=== PATIENT | male | born 1970 | race Caucasian/White ===

== ENCOUNTER 2024-03-13 08:15 | Outpatient (CLI) | payer BC, SELFPAY ==
--- NOTE | ~2024-03-13 | CT_ITS ---
Non-contrast CT scan of the Abdomen and Pelvis Clinical indication: Ventral hernia Technique: 2.5 mm axial scans were obtained through the abdomen and pelvis without intravenous or or al contrast. Dose reduction technique was used on this scan by utilizing automated exposure control a nd iterative reconstruction technique. The dose-length product (DLP) was 1164.37 mGy-cm. Findings: Images through the lung bases reveal no abnormalities. Small bilateral nonobstructing renal calculi measure up to 203 mm. Left renal cyst present. No ureter al stone or hydronephrosis on either side. The liver, spleen, pancreas, gallbladder, and adrenals appear normal. There is no aortic aneurysm. There is no evidence of bowel obstruction. There is a large fat-containing umbilical hernia. Images through the pelvis were performed. There is no evidence of ascites or lymphadenopathy. Urinary bladder unremarkable. Prostate gland minimally enlarged. There is extensive degenerative spondylosis of the spine. Impression: Large fat-containing umbilical hernia. Bilateral small nonobstructing renal stones. Reviewed, dictated and finalized at [facility]. [employer]ED [employer]IM[employer]ST Impression: Large fat-containing umbilical hernia. Bilateral small nonobstructing renal stones.
== END 2024-03-13 08:16 | disposition home or self-care (01) ==
LOC: GOSHIMG 08:15
PROVIDERS: PCP Family Medicine; Visit Provider Surgery
DX: K43.6 Other and unspecified ventral hernia with obstruction, without gangrene (principal); K42.9 Umbilical hernia without obstruction or gangrene; N20.0 Calculus of kidney
CPT/HCPCS: 74176

== ENCOUNTER 2024-12-16 06:43 | Outpatient (CLI) | payer BC, SELFPAY ==
--- NOTE | ~2024-12-16 | CT_ITS ---
EXAMINATION: CT abdomen pelvis wo con DATE: 12/16/2024 07:24 INDICATION: Ventral hernia. TECHNIQUE: Computed tomography (CT) of the abdomen and pelvis was performed without intravenous contrast. Automated exposure control and iterative reconstruction technique were employed. The dose-length product was 1180.78 mGy-cm. COMPARISON: CT abdomen and pelvis 03/13/2024 FINDINGS: The visualized portions of the lung bases are clear without pneumonia or pleural effusion. The heart size is normal. No pericardial effusion. The liver, gallbladder, spleen, pancreas, and adrenal glands are normal. There are 6 stones in right kidney measuring up to 3 mm. There is a 6.1 cm cyst in left kidney. There are 4 stones in left kidney measuring up to 2 mm. The prostate is mildly enlarged. There are no dilated loops of bowel. The appendix is normal. There is an umbilical hernia containing fat. 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 There are no pathologically enlarged lymph nodes. There is no ascites. There is severe lumbar spondylosis. There is mild chronic anterior wedging of multiple vertebral bodies. IMPRESSION: 1. Stable umbilical hernia containing fat. Reviewed, dictated and finalized at location E.
== END 2024-12-16 06:44 | disposition home or self-care (01) ==
PROVIDERS: PCP Family Medicine; Visit Provider Surgery
DX: K43.6 Other and unspecified ventral hernia with obstruction, without gangrene (principal); K42.9 Umbilical hernia without obstruction or gangrene
CPT/HCPCS: 74176

== ENCOUNTER 2025-01-06 10:14 | Outpatient (CLI) | payer BC, SELFPAY ==
--- OUTSIDE RECORDS SUMMARY | 2025-01-06 11:00 | XMS_ITS | Clinical Summary ---
Author Organization [facility] Address [address] [place] [address] Care Team Providers Care Bow Maker Production Name Role Phone Rowdy Ramires MD Primary Care Provider [phone] Landon Warren MD Unavailable [phone] Allergies No known active allergies Medications multivit qktlyksi-ttxw-V A-calcium (THERA-M) 9 mg iron-400 mcg tabletIndicatio ns:Vitamin Deficiency Prevention Take 1 tablet by mouth daily Active coenzyme Q10 10 mg capsule Take 1 capsule by mouth daily Active ascorbic acid (ascorbic acid with juan hips) 500 mg tablet,chewable Take 1 tablet/chew tab (500 mg total) by mouth daily Active cholecalciferol (VITAMIN D-3) 2000 unit tablet Take 1 tablet (2,000 Units total) by mouth daily Active vitamin E 400 unit capsule Take 1 capsule (400 Units total) by mouth daily Active nitroglycerin (NITROSTAT) 0.4 mg SL tabletIndicatio ns:acute episode of anginal pain Place 1 tablet (0.4 mg total) under the tongue every 5 (five) minutes as needed for chest pain 90 tablet 07/18/19 24 Active aspirin 81 mg enteric coated tablet Take 1 tablet (81 mg total) by mouth daily 90 tablet 3 10/16/19 24 Active spironolactone (ALDACTONE) 25 mg tablet TAKE 1 TABLET(25 MG) BY MOUTH DAILY 90 tablet 3 12/17/19 24 Active isosorbide mononitrate ER (IMDUR) 60 mg 24 hr tablet TAKE 1 TABLET(60 MG) BY MOUTH DAILY 30 tablet 3 02/11/20 24 Active Pregnyl 10,000 unit injection DILUTE WITH 5ML SOLVENT INCLUDED IN BOX AND INJECT 25 UNITS SUB-Q TWICE WEEKLY 03/24/20 24 Active Wegovy 2.4 mg/0.75 mL auto-injector 05/08/19 25 Active testosterone cypionate (DEPO-TESTOTERO NE) 100 mg/mL injection Inject into the muscle as instructed once a week Pt unsure of dosage Active rosuvastatin (CRESTOR) 40 mg tablet Take 1 tablet (40 mg total) by mouth nightly 30 tablet 11 06/03/19 25 Active dapagliflozin propanediol (Farxiga) 10 mg tablet TAKE 1 TABLET(10 MG) BY MOUTH DAILY 90 tablet 3 08/12/19 25 Active furosemide (LASIX) 40 mg tablet TAKE 1 TABLET(40 MG) BY MOUTH DAILY 90 tablet 3 01/03/20 25 Active lisinopriL (PRINIVIL,ZESTR IL) 20 mg tablet TAKE 1 TABLET(20 MG) BY MOUTH DAILY 90 tablet 3 01/03/20 25 Active clopidogreL (PLAVIX) 75 mg tablet TAKE 1 TABLET(75 MG) BY MOUTH DAILY 90 tablet 3 01/03/20 25 Active carvediloL (COREG) 25 mg tablet TAKE 1 TABLET(25 MG) BY MOUTH TWICE DAILY WITH MEALS 180 tablet 3 01/03/20 25 Active lisinopriL (PRINIVIL,ZESTR IL) 20 mg tablet TAKE 1 TABLET(20 MG) BY MOUTH DAILY 90 tablet 3 12/17/19 24 025 Discontinued furosemide (LASIX) 40 mg tablet TAKE 1 TABLET(40 MG) BY MOUTH DAILY 90 tablet 3 12/17/19 24 025 Discontinued clopidogreL (PLAVIX) 75 mg tablet TAKE 1 TABLET(75 MG) BY MOUTH DAILY 90 tablet 3 12/17/19 24 025 Discontinued carvediloL (COREG) 25 mg tablet TAKE 1 TABLET(25 MG) BY MOUTH TWICE DAILY WITH MEALS 180 tablet 12/17/19 24 025 Discontinued Active Problems Problem Noted Date Diagnosed Date Preop cardiovascular exam 11/02/2023 Assessment & Plan (11/02/2023 10:38 AM CDT): He should be OK for umbilical hernia repair but will review after data available. CAD in [place] artery 07/31/2023 Assessment & Plan (06/03/2024 5:10 PM SPOT CLEANER): Doing well without angina. The patient is aware of the need for Primary prevention through aggressive CV risk factor modifications to include: blood pressure control, LDL control, daily exercise (per guidelines), and achieving and maintaining ideal body weight, etc. We reviewed his angiogram together, demonstrating the diffuse moderate disease as well as an occluded ramus any effect on the anterolateral wall. Fortunately, his LV function has since normalized. EKG-SR 82, normal. Assessment & Plan (11/02/2023 10:36 AM CDT): Doing well without angina. The patient is aware of the need for Secondary prevention through aggressive CV risk factor modifications to include: blood pressure control, LDL control, daily exercise (per guidelines), and achieving and maintaining ideal body weight, etc. Assessment & Plan (07/31/2023 12:02 PM CDT): He likely had a small ramus branch as his culprit vessel, although his hsTn levels never juan very high. Continuing to treat rest of CAD conservatively. Doing well without angina. The patient is aware of the need for Secondary prevention through aggressive CV risk factor modifications to include: blood pressure control, LDL control, daily exercise (per guidelines), and achieving and maintaining ideal body weight, etc. Cardiomyopathy, ischemic 07/31/2023 Assessment & Plan (06/03/2024 10:43 AM SPOT CLEANER): His LV function is normal, so his LV has recovered. Assessment & Plan (11/02/2023 10:46 AM CDT): Repeat TTE today is pending. OK to withhold Lasix now as he has no edema. He will weigh himself daily and observe for edema. Assessment & Plan (07/31/2023 12:03 PM CDT): He will need FU TTE in 3 mos to decide about ICD. Oferred LifeVest in meantime but may not be necessary and he declines. Essential hypertension 07/31/2023 Assessment & Plan (06/03/2024 10:44 AM SPOT CLEANER): His blood pressure here is always been high and likely reactive. His home blood pressure has been under good control on current medications which will be continued. The patient is aware of the need for continued monitoring. Monitor home BP/Keep diary and bring to OV. Call if average BP >140/90 mmHg. Low sodium diet. Assessment & Plan (11/02/2023 10:37 AM CDT): The blood pressure has been under good control on current medications which will be continued. The patient is aware of the need for continued monitoring. Monitor home BP/Keep diary and bring to OV. Call if average BP >140/90 mmHg. Low sodium diet. Assessment & Plan (07/31/2023 12:03 PM CDT): The blood pressure has been under good control on current medications which will be continued. The patient is aware of the need for continued monitoring. Monitor home BP/Keep diary and bring to OV. Call if average BP >140/90 mmHg. Low sodium diet. Morbid obesity with BMI of 40.0-44.9, adult 07/09 Assessment & Plan (06/03/2024 10:46 AM SPOT CLEANER): He has had excellent weight loss on Wegovy Which he will continue. His BMI has dropped from 41 to 36 but he still has a ways to go. Hopefully, he can have a repeat PSG once he is at ideal body weight. Assessment & Plan (11/02/2023 10:37 AM CDT): Discussed meaningful weight loss thru lifestyle modifications, including dietary changes and weight loss. Advised to decrease caloric intake, eat a low-fat/cholesterol and low-salt diet. Assessment & Plan (07/31/2023 12:03 PM CDT): Discussed meaningful weight loss thru lifestyle modifications, including dietary changes and weight loss. Advised to decrease caloric intake, eat a low-fat/cholesterol and low-salt diet. KAREY on CPAP 07/31/2023 Assessment & Plan (06/02/2024 8:25 PM SPOT CLEANER): He continues to use CPAP. Assessment & Plan (11/02/2023 10:37 AM CDT): He uses CPAP nightly. Assessment & Plan (07/31/2023 12:07 PM CDT): He uses CPAP nightly. Migraine 07/31/2023 Assessment & Plan (06/02/2024 8:24 PM SPOT CLEANER): Per PCP. Assessment & Plan (11/02/2023 10:37 AM CDT): Per PCP. Assessment & Plan (07/31/2023 12:09 PM CDT): Still avoiding NSAID's. He will discuss further migraine management with PCP. Erectile dysfunction 07/31/2023 Assessment & Plan (06/02/2024 8:24 PM SPOT CLEANER): Per PCP. Assessment & Plan (11/02/2023 10:37 AM CDT): Per PCP. Assessment & Plan (07/31/2023 12:11 PM CDT): He can not use Viagra like meds due to use of nitrates. We may be able to DC in the future to allow Viagra use. Hyperlipidemia LDL goal <70 07/31/2023 Assessment & Plan (06/03/2024 10:44 AM SPOT CLEANER): The LDL is borderline well controlled on current pharmacotherapy. We will increase his Crestor to 40 mg daily with repeat FLP/AST in 3 months. Assessment & Plan (11/02/2023 10:38 AM CDT): The LDL is well controlled on current pharmacotherapy which will be continued. Needs recheck today. Assessment & Plan (07/31/2023 12:15 PM CDT): The LDL is well controlled on current pharmacotherapy which will be continued. Will recheck after 3 mos of Crestor. Acute systolic CHF (congestive heart failure) Chest pain 07/15/2023 Uncontrolled hypertension 07/15/2023 Obstructive sleep apnea 07/15/2023 Class 3 obesity 07/15/2023 Hypertensive urgency 07/14/2023 Acute congestive heart failure 07/14/2023 Encounters Date Type Department Care Team Description 01/02/2025 Telephone [facility] Card[facility] [address], [place] [address] Landon Warren MD 12/18/2024 Telephone [facility] Cardiology [address] [place] [address] Landon Warren MD from Last 3 Months Surgical History Surgery Date Site/Laterality Comments NO PAST SURGERIES Medical History Medical History Date Comments Obstructive sleep apnea Complian t to CPAP Family History Medical History Relation Name Comments Heart failure Maternal Grandfather Ovarian cancer Mother Relation Name Status Comments Maternal Grandfather Mother Social History Tobacco Use Types Packs/Day Years Used Date Smoking Tobacco: Never Smokeless Tobacco: Never Tobacco Cessation:Counseling Given: No Personal Safety Answer Date Recorded Have you ever been in or are you currently in a harmful physical or emotional relationship or is someone making you feel afraid or unsafe? Denies 07/15/2023 Sex and Gender Information Value Date Recorded Sex Assigned at Not on file Legal Sex Male 5:34 PM SPOT CLEANER Gender Identity Not on file Sexual Orientation Not on file Obstetrics History Last Filed Vital Signs Vital Sign Reading Time Taken Comments Blood Pressure 138/88 06/03/2024 10:55 AM SPOT CLEANER Pulse 86 06/03/2024 10:05 AM SPOT CLEANER Temperature 37 C (98.6 F) 07/18/2023 11:35 AM CDT Respiratory Rate 18 07/18/2023 11:3 5 AM CDT Oxygen Saturation 96% 06/03/2024 10: 05 AM SPOT CLEANER Inhaled Oxygen Concentration - - Weight 122.6 kg (270 lb 3.2 oz) 025 10:05 AM SPOT CLEANER Height 182.9 cm (6') 06/03/2024 10:05 AM SPOT CLEANER Body Mass Index 36.65 06/03/2024 10:05 AM SPOT CLEANER Plan of Treatment Health Maintenance Due Date Last Done Comments Colon Cancer Screening-Colonoscopy 1972 Depression Screening 1972 Hepatitis C Screening 1972 Prostate Cancer Screening-PSA 1972 Hepatitis B Screening 1990 Regular Well Visit/Exam 18-64 1990 Zoster Vaccine (1 of 2) 2022 DTaP/Tdap/Td Vaccine (2 - Td or Tdap) 03/10/2023 03/10/2013 Influenza Vaccine (#1) 2024 0, 02/01/2018, 02/11/2016, Additional history exists Pneumococcal vaccine <65 Aged Out No longer eligible based on patient's age to complete this topic Medical Devices Implanted Type Area Esol Teacher Device Identifier Shelf Expiration Date Model / Serial / Lot [employer]is Mynxgrip 5fr Balloon Catheter Integrate Sealant Lock Latex Free [id number] - [id number] - [id number] Implanted:Qty: 1 on 07/17/2023 by Landon Warren MD at [facility] [employer] 02/06/2025 [id number] / [id number] / [id number] [place] Advance [place]ives For more information, please contact: [phone] * Full Code (Latest Code Status on File) Date Activated Date Inactivated Comments 07/15/2023 4:46 AM 07/18/2023 6:10 PM Care Teams Bow Maker Production Relationship Specialty Start Date End Date Rowdy Ramires MD [address] [place] [address] PCP - General Family Medicine 07/14/23 Landon Warren MD [address] [facility] [address] [place] [address] Consulting Physician Cardiology 07/18/23
--- OUTSIDE RECORDS SUMMARY | 2025-01-06 11:00 | XMS_ITS | Clinical Summary ---
Author Organization [facility] Address [address] [place] [address] Care Team Providers Care Seeing Eye Dog Teacher Name Role Phone Rowdy Ramires MD Primary Care Provider [phone] Source Comments [facility],non-owned Affiliates and Associated Physician Practices is amultiple site organization consisting of ambulatory clinics and hospital sitesin [place], [place], [place] and [place]. This disclosure is being madepursuant to the Care Everywhere program and may not contain all information available regarding this patient. Last updated 17.[facility] [facility] Allergies No known active allergies Medications * Be aware that medications may not be up to date on this document. Alwaysverify current medications with the patient. influenza quadrivalent vac (FLUARIX QUAD) 0.5 ML injection 0 02/02/2018 Ac tive Multiple Vitamin (MULTI-VITAMIN PO) Active nadolol (CORGARD) 40 MG tablet Take 1 tablet by mouth once daily 90 tablet 3 04/21/2019 Active Active Problems Problem Noted Date Diagnosed Date Essential hypertension 03/11/2018 Nonspecific abnormal electrocardiogram (ECG) 06/2017 Social History Tobacco Use Types Packs/Day Years Used Date Smoking Tobacco: Never Smokeless Tobacco: Never Sex and Gender Information Value Date Recorded Sex Assigned at Not on file Legal Sex Male 8:41 AM BACON SKINNER Gender Identity Not on file Sexual Orientation Not on file Last Filed Vital Signs Vital Sign Reading Time Taken Comments Blood Pressure 140/80 04/21/2019 9:08 AM BACON SKINNER Pulse 77 04/21/2019 9:08 AM BACON SKINNER Temperature 36.3 C (97.4 F) 04/21/2019 9:08 AM BACON SKINNER Respiratory Rate - - Oxygen Saturation 97% 06/11/2017 9:38 AM BACON SKINNER Inhaled Oxygen Concentration - - Weight 159.7 kg (352 lb) 04/21/2019 9:08 AM BACON SKINNER Height 182.9 cm (6') 03/04/2018 10:22 AM BACON SKINNER Body Mass Index 47.74 03/04/2018 10:22 AM BACON SKINNER Plan of Treatment Health Maintenance Due Date Last Done Comments COLOGUARD (AGES 45-75) - COL ON CA SCREENING 1972 COLON MONITORING 1972 COLONOSCOPY - COLON CA SCREENING 1972 CT COLONOGRAPHY - COLON CA SCREENING 1972 Colorectal Cancer Screening 1972 FIT - COLON CA SCREENING 1972 FLEX SIG - COLON CA SCREENING 1972 LIPID TESTING 1972 HIV SCREENING 1987 HEPATITIS C SCREENING 03/24/1990 DTAP/TDAP/TD VACCINES (1 - Tdap) 1991 HEPATITIS B VACCINE (1 of 3 - 19+ 3-dose series) 1991 PNEUMOCOCCAL VACCINE 50+ (1 of 1 - PCV) 2022 ZOSTER VACCINE (1 of 2) 2022 DEPRESSION SCREENING 04/09/2024 COVID-19 VACCINE (1 - 2023-2 5 season) 2024 INFLUENZA VACCINE (#1) 2024 HIB VACCINE Aged Out No longer eligi ble based on patient's age to complete this topic HPV VACCINE Aged Out No longer eligi ble based on patient's age to complete this topic MENINGOCOCCAL (Group B) VACC INE SHARED DECISION-MAKING Aged Out No longer eligibl e based on patient's age to complete this topic MENINGOCOCCAL GROUPS A/C/Y/W VACCINE Aged Out No longer eligible b ased on patient's age to complete this topic Insurance ANTH Care Teams Seeing Eye Dog Teacher Relationship Specialty Start Date End Date Rowdy Ramires MD [address] [place] [address] PCP - General Family Medicine 03/13/17
[2025-01-06 11:07] LABS: Anion Gap 9 mmol/L (4-12); Blood Urea Nitrogen 20 mg/dL (9-20); Calcium 9.0 mg/dL (8.4-10.2); Carbon Dioxide 29 mmol/L (22-30); Chloride 102 mmol/L (98-107); Estimated Glomerular Filt Rate > 60; Glucose 74 mg/dL (65-110); Potassium 4.6 mmol/L (3.4-5.0); Sodium 140 mmol/L (137-145)
== END 2025-01-06 10:15 | disposition home or self-care (01) ==
PROVIDERS: Anesthesiology; PCP Family Medicine; Visit Provider Surgery
DX: Z01.818 Encounter for other preprocedural examination (principal); K43.6 Other and unspecified ventral hernia with obstruction, without gangrene; Z79.899 Other long term (current) drug therapy
CPT/HCPCS: 36415; 80048; 86850; 86900; 86901

== ENCOUNTER 2025-01-09 00:26 | Day surgery (SDC) | payer BC, SELFPAY ==
[2025-01-01 13:05] VITALS: BMI 34.0
--- NOTE | 2025-01-01 13:14 | PC.NURSE ---
[facility] has started construction of its new state of the art ER which will open Spring 2026. With this, we anticipate parking may be a challenge for some our surgical patients and families. Parking spaces are limited but are available for all Surgical, obstetrics, and ER patients sharing this lot. If you arrive and find you are having a hard time finding a parking space, please note that we understand the challenges, please drive around the hospital and park near Hospital Entrance 1. When you enter this entrance, you can ask a volunteer to direct or take you back to the surgical waiting area to check in. We appreciate everyone?s understanding of these expected challenges while we build for your future. Report to the Outpatient Waiting Room, entrance under the green pavilion located off [address], at time _0600_ on date _[id number]_. Planned Procedure Time: _0730_.? Time changes happen often and if your time is changed the preop area will call you the afternoon before. - You and your visitor will be asked to self-screen and do not enter if you have any COVID symptoms. Please call surgeon if you need to reschedule. - A mask is optional within the hospital at this time. Patients may have clear liquids (water, carbonated beverages, clear teas, apple juice) until 3 hours prior to surgery with a maximum of 20 ounces. - No food from midnight until time of surgery and no smoking, or chewing tobacco (or any form of nicotine). No chewing gum, candy or mints. Take only the following medications with a SIP of water on the morning of surgery: ___Carvidilol___ DO NOT STOP ANY OF YOUR OTHER PRESCRIPTION MEDICATIONS PRIOR TO SURGERY EXCEPT THE FOLLOWING Hold all vitamins and supplements for 3 days per anesthesiologist. Medications to discontinue per physician ___Please call Dr Cortes's office about when to stop Clopidogrel No need to stop Aspirin Date to take last dose Please no make-up, nail sami, hairspray, perfume, deodorant, or body powder the day of surgery.? No jewelry (including any body piercings) or valuables the day of surgery, leave them at home.? Please take a shower or bath the night before, or the morning of, surgery with an antibacterial soap.? Wear comfortable, loose fitting clothing.? - Jewelry must be removed prior to entering the operating room.? Rings and piercings that are not removed may be cut off. - The hospital will not accept responsibility for valuables.? - Please leave all valuables, including medications, at home the day of surgery. If you are going home after surgery, a licensed inventory associate and driver must drive you home.? - NO public transportation without another adult if you receive anesthesia. - We recommend that an adult stay with you for 24 hours following discharge. - We also recommend that you do not drive, make important decision, drink alcoholic beverages, or take any drugs that were not prescribed by your health care provider for at least 24 hours after your discharge time. Follow any additional instructions given to you from your surgeon. Telephone instructions given to __Prudencio___and asked if any additional questions and then verbalized understanding. Patient advised to call surgeon office or pre surgery nurse liaison [phone] if any additional questions.
[2025-01-09] VITALS (13 sets, daily range): BP systolic 145–170; BP diastolic 82–117; PULSE 73–86; RESP 12–20; TEMP 36.1–36.9; O2SAT 93–100; BMI 34.5
--- OUTSIDE RECORDS SUMMARY | 2025-01-09 00:29 | XMS_ITS | Clinical Summary ---
Author Organization [facility] Address [address] [place] [address] Care Team Providers Care General Laborer Name Role Phone Rowdy Ramires MD Primary Care Provider [phone] Landon Warren MD Unavailable [phone] Allergies No known active allergies Medications multivit vtkyrzyd-bevk-L A-calcium (THERA-M) 9 mg iron-400 mcg tabletIndicatio [...] will review after data available. CAD in [place] artery 07/31/2023 Assessment & Plan (06/03/2024 5:10 PM MAJOR LEAGUE BASEBALL UMPIRE): Doing well without angina. The patient is [...] 07/31/2023 Assessment & Plan (06/03/2024 10:43 AM MAJOR LEAGUE BASEBALL UMPIRE): His LV function is normal, so his [...] 07/31/2023 Assessment & Plan (06/03/2024 10:44 AM MAJOR LEAGUE B[employer] UMPIRE): His blood pressure here is always been [...] 07/09 Assessment & Plan (06/03/2024 10:46 AM MAJOR LEAGUE BASEB[employer] UMPIRE): He has had excellent weight loss on [...] 07/31/2023 Assessment & Plan (06/02/2024 8:25 PM MAJOR LEAGUE B[employer] UMPIRE): He continues to use CPAP. Assessment & Plan (11/02/2023 10:37 AM CDT): He uses CPAP nightly. Assessment & Plan (07/31/2023 12:07 PM CDT): He uses CPAP nightly. Migraine 07/31/2023 Assessment & Plan (06/02/2024 8:24 PM MAJOR LEAGUE [employer] UMPIRE): Per PCP. Assessment & Plan (11/02/2023 10:37 AM CDT): Per PCP. Assessment & Plan (07/31/2023 12:09 PM CDT): Still avoiding NSAID's. He will discuss further migraine management with PCP. Erectile dysfunction 07/31/2023 Assessment & Plan (06/02/2024 8:24 PM MAJOR LEAGUE [employer] UMPIRE): Per PCP. Assessment & Plan (11/02/2023 10:37 AM CDT): Per PCP. Assessment & Plan (07/31/2023 12:11 PM CDT): He can not use Viagra like meds due to use of nitrates. We may be able to DC in the future to allow Viagra use. Hyperlipidemia LDL goal <70 07/31/2023 Assessment & Plan (06/03/2024 10:44 AM MAJOR LEAGUE B[employer] UMPIRE): The LDL is borderline well controlled on [...] Type Department Care Team Description 01/02/2025 Telephone [facility] Cardiology [address], [place] [address] Landon Warren MD 12/18/2024 Telephone [facility] Cardiology [address] [place] [address] Landon Warren MD from Last [...] on file Legal Sex Male 5:34 PM MAJOR LE[employer]IRE Gender Identity Not on file Sexual Orientation Not on file Obstetrics History Last Filed Vital Signs Vital Sign Reading Time Taken Comments Blood Pressure 138/88 06/03/2024 10:55 AM MAJOR LEAG[employer] U[employer]IRE Pulse 86 06/03/2024 10:05 AM MAJOR LEAGUE [employer] UMPIRE Temperature 37 C (98.6 F) 07/18/2023 11:35 AM CDT Respiratory Rate 18 07/18/2023 11:3 5 AM CDT Oxygen Saturation 96% 06/03/2024 10: 05 AM MAJOR LEAG[employer] U[employer]IRE Inhaled Oxygen Concentration - - Weight 122.6 kg (270 lb 3.2 oz) 025 10:05 AM MAJOR LEAG[employer] UMPIRE Height 182.9 cm (6') 06/03/2024 10:05 AM MAJOR LEAG[employer] U[employer]IRE Body Mass Index 36.65 06/03/2024 10:05 AM MAJOR LEAGUE B[employer] UMPIRE Plan of Treatment Health Maintenance Due Date [...] this topic Medical Devices Implanted Type Area Desulfurizer Operator Device Identifier Shelf Expiration Date Model / Serial / Lot [employer] Mynxgrip 5fr Balloon Catheter Integrate Sealant Lock Latex Free [id number] - [id number] - [id number] Implanted:Qty: 1 on 07/17/2023 by Landon Warren MD at [facility] [employer] 02/06/2025 [id number] / [id number] / [id number] [place] [email or web address] [place] [email or web address] [place] Advance Directives For more information, please contact: [phone] * Full Code (Latest Code Status on File) Date Activated Date Inactivated Comments 07/15/2023 4:46 AM 07/18/2023 6:10 PM Care Teams General Laborer Relationship Specialty Start Date End Date Rowdy Ramires MD [address] [place] [address] PCP - General Family Medicine 07/14/23 Landon Warren MD [address] [facility] [address] [place] [address] Consulting Physician Cardiology 07/18/23
[2025-01-09] MEDS: LACTATED RINGERS 1,000 ML 30 ML IV CONT ×2 (06:45→11:09)
[2025-01-09] MEDS: ACETAMINOPHEN 500 MG TABLET 1000 MG PO (07:04)
[2025-01-09] MEDS: KETOROLAC 15 MG/ML VIAL (*BKC) IV PUSH (07:05)
--- NOTE | 2025-01-09 07:05 | WPDHPUPDATE1 ---
History and Physical Update Update Date/Time: 01/09/25 07:05 History and Physical has been reviewed, including an updated exam of the patient. There are NO changes in the patient's condition. Risks, benefits, and alternatives have been discussed and questions answered. Patient agrees to proceed with procedure.
--- NOTE | 2025-01-09 07:06 | WPDHPUPDATE1 ---
History and Physical Update Update Date/Time: 01/09/25 07:06 History and Physical has been reviewed, including an updated exam of the patient. There are NO changes in the patient's condition. Risks, benefits, and alternatives have been discussed and questions answered. Patient agrees to proceed with procedure.
--- NOTE | 2025-01-09 07:07 | WPDANESEPPF ---
Anes - Initial Pre Proc Eval Procedure: Operation Date: 01/09/25 07:30 Proposed Procedures p Robotic Assisted Laparoscopic Extended Totally Extraperitoneal Incarcerated Ventral Hernia Repair with Mesh - Saroj Cortes MD Date/Time: 01/09/25 07:07 Surgeon: Saroj Cortes MD Pre Op Diagnosis: incarcerated ventral hernia Patient Data Age: 54 Gender: M Height: 1.83 m Weight: 115.6 kg Last Vital Signs Temp 36.9 C 01/09/25 06:10 Pulse 84 01/09/25 06:10 Resp 16 01/09/25 06:10 Pulse Ox 100 01/09/25 06:10 O2 Del Method Room Air 01/09/25 06:10 Allergies Allergy/AdvReac Type Severity Reaction Status Date / Time No Known Allergies Allergy Verified 01/09/25 06:42 Home Medications ?Medication ?Instructions ?Recorded ?Confirmed ?Type aspirin 81 mg tablet,delayed 81 mg PO DAILY 11/06/23 01/07/25 History release carvedilol 25 mg tablet 25 mg PO Q12H 11/06/23 01/09/25 History cholecalciferol (vitamin D3) 25 25 mcg PO DAILY 11/06/23 01/07/25 History mcg (1,000 unit) capsule clopidogrel 75 mg tablet 75 mg PO DAILY 11/06/23 01/09/25 History furosemide 40 mg tablet 40 mg PO QAM 11/06/23 01/07/25 History lisinopril 20 mg tablet 20 mg PO DAILY 11/06/23 01/07/25 History multivitamin 1 tablet PO DAILY 11/06/23 01/07/25 History nitroglycerin 0.4 mg sublingual 0.4 mg sublingual Q5M PRN chest 11/06/23 01/07/25 History tablet pain ascorbic acid (vitamin C) 500 mg 500 mg PO DAILY 01/01/25 01/07/25 History tablet (C-500) coenzyme Q10 100 mg capsule (Co 100 mg PO DAILY 01/01/25 01/07/25 History Q-10) Patient hx anesthesia problems: none Family hx anesthesia problems: none Results Review: All pre-operative results and documents have been reviewed as part of the pre-operative evaluation. [facility] Past Medical History Medical History Migraines Diabetes Hypertension Hyperlipidemia KAREY on CPAP Peptic ulcer disease Erectile dysfunction CHF (congestive heart failure) Surgical History Surgical History Hx of tonsillectomy Social History Social History Smoking status: Never smoker Alcohol intake: former Alcohol use details: occasional Current Housing: Decline to Answer Concerned About Future Housing: Decline to Answer Difficulty Paying Gas/Electric Bills: Decline to Answer Difficulty Paying for Meds: Decline to Answer Currently Unemployed: Decline to Answer Education: Decline to Answer Difficulty w/ Childcare or Family Care: Decline to Answer Living arrangements: with family Spiritual care concerns: No Anes - Eval Final PreProcedure Day of Procedure 01/09/25 07:07 Patient weight: obese Heart: regular rate and rhythm Lungs: clear to auscultation Airway: Mallampati scale class II Neurological: alert and oriented Last oral intake: >/= 8 hours ASA classification: III Emergent: no Anesthetic plan: proceed Anesthesia type and monitoring: general ETT and standard monitoring Results Review: All pre-operative results and documents have been reviewed as part of the pre-operative evaluation. Informed Consent: The patient's anesthetic plan and its attendant risks and benefits were discussed with the patient/family/POA. Questions were solicited and answers provided to the satisfaction of the patient/family/POA.
[2025-01-09] MEDS: ceFAZolin 2 GM in SODIUM CHLORIDE 0.9% IV 50 ML 100 ML IVPB (07:24)
[2025-01-09] MEDS: LIDO 1%/EPINEPHRINE 1:100,000 20 ML VIAL 30 ML INFILTRATE (08:14)
[2025-01-09] MEDS: fentaNYL CITRATE INJ (*CRX) 100 MCG/2 ML VIAL 25 MCG IV PUSH ×2 (12:05→12:15)
--- NOTE | 2025-01-09 14:32 | P.OPB_ITS ---
Procedure Note - Brief Procedure Note - Brief Date of procedure: 01/09/25 incarcerated ventral hernia Post-op diagnosis: Same Procedure performed: Robotic assisted laparoscopic extended total extraperitoneal (eTEP) incarcerated ventral hernia with Synecor mesh, myofascial release x2 (bilateral) Surgeon: Saroj Cortes MD Voltmeter Operator: Alyssa JAIN Anesthesia: GETA Implants: [id number] Synecor Pre mesh. Estimated blood loss (mL): 50 Drains: No Packing: No Pathology: None sent Complications: No immediate complications Condition: Stable Disposition: PACU
--- NOTE | 2025-01-11 08:34 | W.PM.PROC2 ---
Procedure Note - Detailed Date of Procedure 01/09/25 Pre-op Diagnosis Incarcerated ventral hernia Post-op Diagnosis Same Procedure Performed Robotic assisted laparoscopic extended total extraperitoneal (eTEP) incarcerated ventral hernia repair with Synecor mesh and myofascial release x2 (bilateral) Surgeon Saroj Cortes MD Client Service Consultant Alyssa Reinoso DRESSING MACHINE OPERATOR Anesthesia General Indications Patient is a 54-year-old white male who presented with complaints of a painful bulge in the periumbilical region just above the umbilicus. On examination he was found to have a incarcerated periumbilical ventral hernia. He has not had a previous incision in this area and so this was a primary ventral hernia. CT scan abdomen pelvis was performed showing incarcerated omentum within the hernia sac. He also had a epigastric diastasis measuring about 3cm in diameter. The defect in the fascia at the formal hernia defect was approximately 5cm in diameter. He presents now for a robotic assisted laparoscopic extended totally extraperitoneal incarcerated ventral hernia repair with mesh and myofascial release x2. Findings The patient incarcerated viable omentum within the hernia defect. The defect measured 5x4cm. There was an epigastric diastasis from the hernia defect all the way up to almost the xiphoid process measuring about 3cm in diameter. After reduction of the omental contents of the hernia sac the defect closed easily without any tension. The epigastric diastasis was also plicated and the whole area was reinforced with a piece of Synecor mesh in the retrorectus position. Description of Procedure After informed consent was obtained patient brought to the operating room was placed supine position and general endotracheal anesthesia was administered. A Guadarrama catheter was placed decompress the bladder. Orogastric tube was placed decompress the stomach. The abdomen was then prepped and draped usual sterile fashion. Time-out was then performed correctly identifying the patient as well as procedure to be performed. He was given perioperative IV antibiotics. I 1st started by utilizing a 5mm Optiview port in the left upper quadrant and entered in the right subcostal space over the midportion of the left rectus muscle. As I very carefully dissected down through the subcutaneous tissues and Demetria's fascia encountered the muscle fibers of the rectus muscle and then flattened the port and dissected into the retrorectus space left side and with the Optiview port. Once inside the space insufflated [id number] in the space and then used the 5mm laparoscopic to bluntly dissect the space until I created enough room to place additional 8mm robotic trocar ports. I then placed 2 mm robotic trocar ports in the left lateral abdominal wall into the retrorectus space and then replaced the 5mm trocar port with an 8mm trocar port. I then placed a 12mm laparoscopic trocar port as well in the left upper quadrant. This is all done under direct visualization. Robot was then brought to the patient's bedside and docked. The robotic arms were then attached robotic ports and the robotic instruments were advanced into the left retrorectus space. Utilizing robotic hook dissection I then further divided the wispy tissue in the retrorectus space leaving the rectus muscle fibers above and the posterior rectus sheath below. Identified the left inferior epigastric vessels in left those attached to the muscle fibers. The the myofascial release of the left rectus muscle was performed all the way to the medial edge of the rectus muscle and from the subcostal margin almost down to the space of Retzius. I then proceeded to perform a crossover maneuver. In the upper medial aspect of the left posterior should rectus sheath I incised with electrocautery and entered the preperitoneal space and transition to the contralateral retro muscular space. In order to continue the repair and improved medialization of the anterior rectus sheath for the purpose of reconstruction of the linea alba the next level of off after release had to be performed. Contralateral posterior rectus sheath was dissected and release of the right rectus muscle all the way to the semilunaris line on the right side was performed. The neurovascular bundles were identified and preserved. The retro muscular space was created cranial and caudal to the hernia defect. This is all done with the robotic hook cautery. We then turned our attention towards reduction of the hernia contents. The hernia sac at the edge of the linea alba was incised electrocautery. Once inside the hernia sac I would found viable omentum. There was a large amount omentum and this was all reduced with division of adhesions of the omentum to the hernia sac was utilizing electrocautery. Small bleeding areas on the omentum was treated electrocautery to hemostasis. Once the omentum was completely reduced I then reduced to below the level of the peritoneum retro rectus fascia. I then closed the peritoneal defect in the hernia sac utilizing a running 2-0 absorbable V lock suture. I then measured the hernia defect in the periumbilical region this was 5x4cm. The associated rectus diastasis was about 3cm in diameter coming from the defect all the way up to the xiphoid process. I then proceeded to close the defect and plicate the rectus diastasis in the epigastric region of the abdomen. A nonabsorbable 0V lock suture was started a couple cm below the periumbilical defect and then it was run in a horizontal mattress fashion to imbricate the edges of the fascia and hernia defect. This was continued into the diastasis and the suture was run into the diastasis was completely plicated at the level of the xiphoid process. The defect and diastasis closed easily without any significant tension after the bilateral myofascial release.. I then measured the retrorectus space and felt that a piece of Stella Synecor Pre mesh measuring 30cm x 20 cm would be more than adequate to cover the whole space with very wide overlap of the repairs. The mesh was cut to round off the corners of the rectangular piece of mesh. Was then rolled up and then placed into the retrorectal space through the 12mm trocar port. The mesh was then laid out on top of the posterior rectus fascia in the retrorectus space. The mesh was not fixated in this space and extended on the left side to cover the areas of the left-sided port incisions. I then had the robotic instruments removed from the abdomen and scrubbed back into the procedure at the bedside. Hemostasis was good in the operative field and all the ports were removed under direct visualization taking care to make sure that the mesh remained flat as the CO2 was released. I then irrigated all the port sites sterile saline solution hemostasis was good. The 12mm trocar port anterior fascial defect was then closed utilizing a 0 Vicryl suture at the fascial level. All the port sites were closed utilizing a running subcuticular 4-0 Monocryl suture at the skin level. The incisions were then cleaned the skin glue was applied. An abdominal binder was then placed. The patient tolerated the procedure well no complications. All sponges, needles, and instrument counts were correct at the end procedure. EBL was _30__cc. The patient was awakened and taken to recovery in stable and satisfactory condition. Implants Stella Synecor pre mesh [id number] place retrorectus space Estimated Blood Loss 30 Drains No Packing No Pathology None sent Complications No immediate complications Condition Stable Disposition PACU [facility] Billing Surgery - Charge Forward: Surgery Billing
== END 2025-01-09 14:08 | disposition home or self-care (01) ==
PROVIDERS: PCP Family Medicine; Visit Provider Surgery
PROC: (CPT 49594; principal; 2025-01-09 07:30)
DX: K43.6 Other and unspecified ventral hernia with obstruction, without gangrene (principal); M62.08 Separation of muscle (nontraumatic), other site; E66.9 Obesity, unspecified; Z68.34 Body mass index [BMI] 34.0-34.9, adult
CPT/HCPCS: 49594; 15734 ×2; S2900; J0690; A9270; C1781; J1100; J1885; J2003; J2004; J2250; J2405; J2704; J3010; J7120